=== PATIENT | female | born 1970 | race Caucasian/White ===

== ENCOUNTER 2023-02-21 18:23 | Emergency (ER) | payer OTHER ==
--- NOTE | 2023-02-21 19:41 | RAD REPORT ---
EXAM DESCRIPTION: Eric Single View02/21/2023 7:23 pm CLINICAL HISTORY: Chest pain COMPARISON: none FINDINGS: The lungs appear clear of acute infiltrate. The heart is normal size IMPRESSION: No acute abnormalities displayed
--- NOTE | 2023-02-21 19:42 | RAD REPORT ---
EXAM DESCRIPTION: RAD - Shoulder Right 2 View - 02/21/2023 7:23 pm CLINICAL HISTORY: Right shoulder pain FINDINGS: No fracture or dislocation is seen.
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
[2023-02-21 21:08] VITALS: TEMP 98.6; O2SAT 99
[2023-02-21 21:09] VITALS: BP 162/102
== END 2023-02-21 21:03 | disposition home or self-care (01) ==
LOC: ER 18:23
DX: S16.1XXA Strain of muscle, fascia and tendon at neck level, initial encounter (principal); S40.011A Contusion of right shoulder, initial encounter; V49.49XA Driver injured in collision with other motor vehicles in traffic accident, initial encounter
CPT/HCPCS: 70450; 71045; 72125; 72170

== ENCOUNTER 2023-06-29 21:50 | Emergency (ER) | payer OTHER ==
[2023-06-29] MEDS ORDERED: LIDOCAINE 1% MPF 5 ML VIAL ONE (22:35)
[2023-06-29] MEDS ORDERED: HYDROCODONE/APAP 10/325 TAB ONE (22:35)
[2023-06-29] MEDS ORDERED: SIMETHICONE 80 MG CHEWABLE TAB ONE (22:44)
--- NOTE | 2023-06-29 23:16 | EDPHYS ---
Physician Documentation [facility] Name: Larisa Suárez Age: 53 yrs Sex: Female : 1970 Arrival Date: 06/29/2023 Time: 21:50 Bed 12 Private MD: ED Physician Merritt Valentine HPI: 06/29 22:29 This 53 yrs old Female presents to ER via Ambulatory with complaints of Abscess. kb 22:29 Patient is a 53-year-old female who presents for an abscess to the groin (left side of kb mons pubis) that started 6 days ago. States she went to urgent care and the provider told her he was not comfortable cutting it open in that area so they sent her to the ER for evaluation. Patient denies fever.. 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 - Social history:: Smoking status: Patient denies any tobacco usage or history of. ROS: 22:27 Constitutional: Negative for fever, chills, and weight loss, kb 22:27 Skin: Positive for abscess, of the groin, 22:27 All other systems are negative, Exam: 22:27 Constitutional: This is a well developed, well nourished patient who is awake, alert, kb and in no acute distress. Head/Face: Normocephalic, atraumatic. ENT: Moist Mucous membranes Cardiovascular: Regular rate Respiratory: Respirations even and unlabored. No increased work of breathing. Talking in full sentences Abdomen/GI: Soft, non-tender. No distention MS/ Extremity: Pulses equal, no cyanosis. Neurovascular intact. Full, normal range of motion. Neuro: Awake and alert, GCS 15, oriented to person, place, time, and situation. Moves all extremities. Normal gait. 22:27 Skin: abscess, that is moderate sized, of the groin, with drainage, with fluctuance, with induration, Vital Signs: 21:58 BP 154 / 97; Pulse 91; Resp 18; Temp 97.1; Pulse Ox 99% ; Weight 98.43 kg; Height 5 ft. cm10 5 in. ; Pain 7/10; 21:58 Body Mass Index 36.11 (98.43 kg, 165.1 cm) cm10 21:58 Pain Scale: Adult cm10 Procedures: 23:15 I \T\ D: Incision and drainage was performed for an abscess of the groin Prepped with Betadine, Anesthetized with 2 ml's 1% Lidocaine. Incised with #11 blade. Drained moderate amount purulent fluid. Cultures obtained. Abscess cavity explored. Packed with iodoform gauze, Dressing: sterile 4x4 gauze, the patient tolerated the procedure well. MDM: 21:55 Patient medically screened. kb 22:29 Differential diagnosis: abscess, allergic reaction, cellulitis, insect bite. Data kb reviewed: vital signs, nurses notes. 23:14 Counseling: I had a detailed discussion with the patient and/or guardian regarding the kb historical points, exam findings, and any diagnostic results supporting the discharge/admit diagnosis, the need for outpatient follow up, a general surgeon, to return to the emergency department if symptoms worsen or persist or if there are any questions or concerns that arise at home. 06/29 22:49 Order name: Wound Culture 06/29 22:21 Order name: I\T\D Setup; Complete Time: 23:30 kb Administered Medications: 22:29 Drug: [place] PO 10 mg-325 mg 1 tabs PO once Route: PO; cm10 23:18 Follow up: Response: No adverse reaction cm10 22:35 Drug: Simethicone PO 240 mg PO once Route: PO; cm10 23:18 Follow up: Response: No adverse reaction cm10 23:18 Drug: Lidocaine Infiltration (1 %) 1 vials 5 ml Infiltration once; to bedside Volume: 5 cm10 ml; Route: Infiltration; Disposition: 06/30 00:38 Co-signature as Attending Physician, Merritt Valentine MD I reviewed the patient's care rn provided by the Advanced Practice Provider and agree with the diagnosis and treatment plan. Disposition Summary: 06/29/23 23:15 Discharge Ordered Notes: Location: Home Condition: Stable Diagnosis - Cutaneous abscess of groin kb Followup: kb - With: Emergency Department - When: As needed - Reason: Worsening of condition Followup: kb - With: Private Physician - When: 2 - 3 days - Reason: Recheck today's complaints, Continuance of care, Re-evaluation by your physician Discharge Instructions: - Discharge Summary Sheet kb - Skin Abscess, [id number] kb - Incision and Drainage, Care After kb Forms: - Medication Reconciliation Form kb - Thank You Letter kb - Antibiotic Education kb - Prescription Opioid Use kb - Patient Portal Instructions kb - Leadership Thank You Letter kb Prescriptions: - Tramadol 50 mg Oral Tablet - take 1 tablet ORAL route every 8 hours as needed; 12 tablet; Refills: 0, kb Product Selection Permitted - Bactrim DS 800-160 mg Oral Tablet - take 1 tablet ORAL route every 12 hours for 10 days; 20 tablet; Refills: 0, kb Product Selection Permitted Signatures: Dispatcher [employer] EDRebekah Boo, LARSC ELISABETH-Merritt Maldonado MD MD rn Rupa Vergara RN RN cm10
--- NOTE | 2023-06-29 23:16 | ER ---
Nurse's Notes [facility] Name: Larisa Suárez Age: 53 yrs Sex: Female : 1970 Arrival Date: 06/29/2023 Time: 21:50 Bed 12 Private MD: Diagnosis: Cutaneous abscess of groin Presentation: 06/29 21:58 Chief complaint: Patient states: abscess to left side of groin. pt states that she cm10 noticed it on Sunday and it has progressively gotten worse. Pt was seen at urgent care and was told to come to the ED. Coronavirus screen: Vaccine status: Patient reports receiving the 1st dose of the Covid vaccine. Client denies travel out of the [place] in the last 14 days. Ebola Screen: Patient denies travel to an Ebola-affected area in the 21 days before illness onset. No symptoms or risks identified at this time. Initial Sepsis Screen: Does the patient meet any 2 criteria? No. Patient's initial sepsis screen is negative. Does the patient have a suspected source of infection? No. Patient's initial sepsis screen is negative. Risk Assessment: Do you want to hurt yourself or someone else? Patient reports no desire to harm self or others. Onset of symptoms was June 29, 2023. 21:58 Method Of Arrival: Ambulatory cm10 21:58 Acuity: LOULOU 4 cm10 Triage Assessment: 22:01 General: Appears in no apparent distress. comfortable, Behavior is calm, cooperative. cm10 Pain: Complains of pain in groin. EENT: No deficits noted. No signs and/or symptoms were reported regarding the EENT system. Neuro: No deficits noted. P[place]itt Agitation-Sedation Scale (RASS): 0 - Alert and Calm Level of Consciousness is awake, alert, obeys commands, Oriented to person, place, time, situation. Respiratory: No deficits noted. Airway is patent Respiratory effort is even, unlabored, Respiratory pattern is regular, symmetrical. Derm: Abscess located on groin. 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 - Social history:: Smoking status: Patient denies any tobacco usage or history of. Screenin:31 [facility] ED Fall Risk Assessment (Adult) History of falling in the last 3 months, cm10 including since admission No falls in past 3 months (0 pts) Confusion or Disorientation No (0 pts) Intoxicated or Sedated No (0 pts) Impaired Gait No (0 pts) Mobility Assist Device Used No (0 pt) Altered Elimination No (0 pt) Score/Fall Risk Level 0 - 2 = Low Risk Oriented to surroundings, Maintained a safe environment, Hourly rounding (assess needs \T\ fall precautionary measures) done. Abuse screen: Denies threats or abuse. Denies injuries from another. Nutritional screening: No deficits noted. Tuberculosis screening: No symptoms or risk factors identified. Vital Signs: 21:58 BP 154 / 97; Pulse 91; Resp 18; Temp 97.1; Pulse Ox 99% ; Weight 98.43 kg; Height 5 ft. cm10 5 in. ; Pain 7/10; 21:58 Body Mass Index 36.11 (98.43 kg, 165.1 cm) cm10 21:58 Pain Scale: Adult cm10 ED Course: 21:54 Patient arrived in ED. jj6 21:55 Rebekah Rapp [facility]NP[facility]C [facility] kb 21:55 Merritt Valentine MD is Attending Physician. kb 22:01 Triage completed. cm10 22:02 Arm band placed on Patient placed in an exam room, on a stretcher. cm10 23:31 Patient has correct armband on for positive identification. Provided Education on: cm10 Follow- up instructions.. Cardiac monitoring not applicable on this patient. 23:31 No provider procedures requiring assistance completed. Patient did not have IV access cm10 during this emergency room visit. Dressings: 4X4s X 2; groin. Wound care: located on groin was dressed with 4X4s. Administered Medications: 22:29 Drug: [place] PO 10 mg-325 mg 1 tabs PO once Route: PO; cm10 23:18 Follow up: Response: No adverse reaction cm10 22:35 Drug: Simethicone PO 240 mg PO once Route: PO; cm10 23:18 Follow up: Response: No adverse reaction cm10 23:18 Drug: Lidocaine Infiltration (1 %) 1 vials 5 ml Infiltration once; to bedside Volume: 5 cm10 ml; Route: Infiltration; Medication: 23:31 VIS not applicable for this client. cm10 Outcome: 23:15 Discharge ordered by MD. tellez 23:32 Discharged to home ambulatory, with family, cm10 23:32 Condition: good 23:32 Discharge instructions given to patient, significant other, Instructed on discharge instructions, follow up and referral plans. medication usage, wound care, Demonstrated understanding of instructions, follow-up care, medications, wound care, Prescriptions given X 2, 23:33 Patient left the ED. cm10 Signatures: Rebekah Rapp, ELISABETH-C ELISABETH-Tashia Escobarj6 Rupa Vergara, RN RN cm10
[2023-06-29 23:38] VITALS: BP 154/97; TEMP 97.1; O2SAT 99
== END 2023-06-29 23:33 | disposition home or self-care (01) ==
LOC: ER 21:50
PROC: 0H9AXZZ Drainage of Inguinal Skin, External Approach (ICD-10-PCS; principal; 2023-06-29)
DX: L02.214 Cutaneous abscess of groin (principal); Z88.8 Allergy status to other drugs, medicaments and biological substances
CPT/HCPCS: 87070; 87205; 99284; 10060; J2001; 87077; 87186